=== PATIENT | female | born 1985 | race Caucasian/White ===

== ENCOUNTER 2020-04-22 11:39 | Outpatient (REF) | payer OTHER, SELFPAY | END 2020-04-22 11:40 | disposition home or self-care (01) | LOC: HO.LAB 11:39 | PROVIDERS: Visit Provider Internal Medicine | DX: Z20.828 Contact with and (suspected) exposure to other viral communicable diseases (principal) | CPT/HCPCS: U0003 ==

== ENCOUNTER 2020-06-30 12:53 | Outpatient (REF) | payer OTHER, SELFPAY | END 2020-06-30 12:54 | disposition home or self-care (01) | LOC: HO.LAB 12:53 | PROVIDERS: Visit Provider Internal Medicine | DX: Z20.828 Contact with and (suspected) exposure to other viral communicable diseases (principal) | CPT/HCPCS: 36415; C9803; U0003 ==

== ENCOUNTER 2020-08-10 17:23 | Emergency (ER) | payer OTHER, SELFPAY ==
[2020-08-10 22:31] VITALS: BP 140/71; PULSE 74; RESP 16; TEMP 36.8; O2SAT 98; BMI 25.7
== END 2020-08-11 00:19 | disposition left against medical advice (07) ==
PROVIDERS: Emergency Provider Emergency Medicine
DX: S01.332A Puncture wound without foreign body of left ear, initial encounter (principal); S01.331A Puncture wound without foreign body of right ear, initial encounter; X58.XXXA Exposure to other specified factors, initial encounter; H93.8X3 Other specified disorders of ear, bilateral; Y93.9 Activity, unspecified; Y92.9 Unspecified place or not applicable; Y99.9 Unspecified external cause status
CPT/HCPCS: 99281; 99282

== ENCOUNTER 2020-08-11 11:46 | Emergency (ER) | payer OTHER, SELFPAY ==
[2020-08-11 14:32] VITALS: BP 120/84; PULSE 82; RESP 16; TEMP 36.6; O2SAT 99; BMI 25.7
--- NOTE | 2020-08-11 14:50 | ED_ITS ---
HPI - Skin/Abscess/Foreign Bdy General Chief complaint: Skin/Abscess/Foreign Body Stated complaint: EAR PAIN Time Seen by Provider: 08/11/20 12:38 Source: patient Mode of arrival: ambulatory Limitations: no limitations History of Present Illness HPI narrative: 35-year-old female presenting to the ED with complaints of hearing stuck in bilateral yellow for the past 2 days. Denies any other symptoms complaints or concerns at this time. MD complaint: foreign body Onset (ago): day(s) (2 days ) Location: face (b/l ear lobes) Severity: moderate Quality: aching Pain Consistency: constant Relieving factors: none Exacerbating factors: none Context: none Associated symptoms: denies other symptoms Treatments prior to arrival: none Related Data Previous Rx's Medication Instructions Recorded acetaminophen-codeine 1 tab PO Q8H PRN #10 tab 08/11/20 amoxicillin-pot clavulanate 1 tab PO BID 10 Days #20 tab 08/11/20 [Augmentin] ibuprofen 800 mg PO Q8H PRN #14 tab 08/11/20 Allergies Allergy/AdvReac Type Severity Reaction Status Date / Time No Known Allergies Allergy Unknown UNKNOWN Unverified 03/10/20 16:40 Review of Systems Review of Systems: Constitutional : No Fever, No Chills , no body aches, no recent illness Head/Face: No facial swelling, No facial redness ENT/Mouth : + FB top b/l ear lobes, No oral/throat swelling, No Hoarseness, No Swallowing Difficulty Eyes: No Eye Pain, No Swelling, No Redness Cardiovascular : No Chest Pain, No SOB, No palpitations Respiratory : No Cough, No Sputum, No Wheezing, No Smoke Exposure, No Dyspnea Gastrointestinal : No Nausea, No Vomiting, No Diarrhea, No abdominal Pain Genitourinary : No Dysuria, No Urinary Frequency, No Hematuria Musculoskeletal : No joint pain, No Myalgias, No Joint Swelling Skin : No Skin Lesions, No rash Neuro : No Weakness, No Numbness, No Headache, No dizziness, No tingling Psych : No Anxiety/Panic, No Depression Heme/Lymph: No Bruising, No Lymphadenopathy Endocrine : No Polyuria, No Polydipsia Denies changes in lotions or detergents. Denies new medications or any changes in medications. Denies drainage from rash. Denies any recent sick contacts or recent travel. Yes all other systems are reviewed and are negative PMFSH Past Medical History Attestation statement: The following information was validated with the patient. Medical History No known health problems Social History Social History Smoked in Last 30 Days: No Use of substances other than those prescribed or required for medical reasons: No Advance Directives: No Advance Directives Information Provided: No Physical Exam Vital Signs: Vital Signs: Last Vital Signs Temp 97.9 F 08/11/20 14:32 Pulse 82 08/11/20 14:32 Resp 16 08/11/20 14:32 BP 120/84 08/11/20 14:32 Pulse Ox 99 08/11/20 14:32 Body Mass Index 25.7 vital signs have been reviewed as normal and appeared to be correct. Blood pressure normal. Heart rate normal. Respiration rate normal. Temperature normal. Oxygen saturation normal. Appearance: Alert. Oriented X3. No acute distress. Head: Normal external exam. Normocephalic. Atraumatic. Eyes: PERRLA. EOMI. Conjunctiva and sclera normal. Eyelids normal. ENT: Bilateral ear lobes with yellow-colored earrings in place although the back piece is imbedded into the ear with mild soft tissue swelling and purulent drainage coming out posterior ear lobe. Otherwise EAC normal. TM's Normal. Pharynx normal. Uvula midline. Moist mucous membranes. Neck: Normal inspection. Neck supple. FROM. No adenopathy. Thyroid Normal. No meningeal signs. CVS: Normal heart rate and rhythm. Heart sound normal. No murmurs noted. Pulses normal throughout. Respiratory: No respiratory distress. Painless inspiration. Back: No CVA tenderness. Full range of motion noted. Skin: Skin warm and dry. Normal skin color. Normal skin turgor. No rashes/lesions/lacerations noted. Extremities: Extremities exhibit normal range of motion. Extremities nontender. Neuro: Oriented X 3. No motor deficit. No sensory deficit. Reflexes normal. Course Course Course Narrative: Patient is now status post foreign body of the Gold colored back piece of the earrings removed. No complications. Patient tolerated procedure well. Due to purulent drainage will place on antibiotic and symptomatic treatment all instructions to return if any new or worsening symptoms to follow up with primary care provider. Patient understands agrees the plan. Procedures FB Removal Ear Location: ear canal (R) (Bilateral ear lobes) Foreign Body Suspected: other (Gold color metal) Foreign Body Removed: yes Foreign Body Removal Technique: forceps Patient Tolerated Procedure: well and no complications Complications: none Additional Comments: I did not have to go into the patient's internal ear canal. MDM - Skin/Abscess/Foreign Bdy Medical Records Attestation: I reviewed the patient's medical records. Discharge Plan Discharge Clinical Impression: Acute foreign body of right earlobe, Acute foreign body of left earlobe Patient Disposition: Home, Self-Care Instructions: Soft Tissue Foreign Body (ED), Ear Foreign Body (ED) Prescriptions: New amoxicillin-pot clavulanate [Augmentin] 875-125 mg tablet 1 tab PO BID 10 Days Qty: 20 RF: 0 acetaminophen-codeine 300-30 mg tablet 1 tab PO Q8H PRN (Reason: pain) Qty: 10 RF: 0 ibuprofen 800 mg tablet 800 mg PO Q8H PRN (Reason: pain) Qty: 14 RF: 0 Referrals: [facility] [Primary Care Provider] - 2 days Print Language: Togolese
== END 2020-08-11 15:06 | disposition home or self-care (01) ==
PROVIDERS: Emergency Provider Emergency Medicine
DX: S01.342A Puncture wound with foreign body of left ear, initial encounter (principal); S01.341A Puncture wound with foreign body of right ear, initial encounter; X58.XXXA Exposure to other specified factors, initial encounter; Y93.9 Activity, unspecified; Y92.9 Unspecified place or not applicable; Y99.9 Unspecified external cause status
CPT/HCPCS: 99283; 99284

== ENCOUNTER 2021-02-23 14:56 | Outpatient (REF) | payer OTHER, SELFPAY ==
--- NOTE | ~2021-02-23 | XR_ITS ---
EXAMINATION: XR CHEST CLINICAL INFORMATION: Preop. Rule out lesion. COMPARISON: Previous chest x-rays, most recent November 2019 TECHNIQUE: 2 views of the chest were obtained. FINDINGS: No significant abnormality is noted involving the heart, lungs, mediastinum, bony thorax or soft tissues. XR/XR chest 2V IMPRESSION: Unremarkable examination.
[2021-02-23 15:50] LABS: Influenza A PCR NEGATIVE (Negative); Influenza B PCR NEGATIVE (Negative); Resp Syncy Virus RNA Qual PCR NEGATIVE (Negative); SARS COV2 PCR INHOUSE NEGATIVE (Negative)
== END 2021-02-23 14:57 | disposition home or self-care (01) ==
LOC: HO.XRAY 14:56
PROVIDERS: PCP Internal Medicine; Visit Provider Internal Medicine
DX: Z01.818 Encounter for other preprocedural examination (principal)
CPT/HCPCS: 0241U; 36415; 71046

== ENCOUNTER 2021-03-08 09:56 | Emergency (ER) | payer OTHER, SELFPAY ==
--- NOTE | ~2021-03-08 | CT_ITS ---
EXAMINATION: CT ABDOMEN AND PELVIS WITHOUT CONTRAST CLINICAL INFORMATION: Flank pain. COMPARISON: CT abdomen pelvis 01/06/2018 TECHNIQUE: Multidetector volumetric imaging was performed from the superior aspect of the liver through the pubic symphysis. Sagittal and coronal reformatted images were obtained on the technologist's workstation. This CT examination was performed using dose optimization techniques as appropriate, variously including the following: *Automated exposure control *Adjustment of mA and/or kV according to patient size (this includes techniques or standardized protocols for targeted exams where dose is matched to indication/reason for exam; i.e. extremities or head) *Use of iterative reconstruction technique DLP: 370 mGy-cm FINDINGS: LUNG BASES: The visualized lung bases are unremarkable. LIVER, GALLBLADDER, AND BILIARY TREE: The liver is normal in size, shape, and attenuation. No focal hepatic lesion or biliary ductal dilatation is present. The gallbladder is unremarkable with no evidence of radiopaque gallstones, gallbladder wall thickening, or obvious pericholecystic inflammatory changes. PANCREAS: Unremarkable. SPLEEN: Unremarkable. ADRENAL GLANDS: Unremarkable. KIDNEYS AND URETERS: The kidneys are normal in size, shape, and attenuation. No hydronephrosis, hydroureter, or calculi seen. No perinephric stranding. There is a punctate 4 mm hypodensity upper/midpole right kidney cortex likely small cyst. BLADDER: Unremarkable. GASTROINTESTINAL TRACT: There is scattered stool, diverticuli and gas throughout the colon without distention or mural thickening. No pericolic fat stranding seen. ABDOMINAL WALL: A small lumbar canal hernia containing fat is noted. LYMPH NODES: Normal. VASCULAR: Unremarkable. PELVIC VISCERA: The uterus is anteverted and appears unremarkable. There is no adnexal mass or free fluid. No evidence of hernia. OSSEOUS STRUCTURES: Unremarkable. CT/CT abdomen pelvis wo con IMPRESSION: Sigmoid diverticulosis without evidence of diverticulitis. Mild constipation. No radiopaque urolith or hydroureteronephrosis.
[2021-03-08 10:16] VITALS: BP 124/77; PULSE 56; RESP 16; TEMP 36.2; O2SAT 98; BMI 24.7
[2021-03-08 10:40] LABS: Appearance Urine HAZY; Color Urine YELLOW; Glucose Urine UA NEG (NEG); Leukocyte Esterase Urine 1+ (NEG); Nitrite Urine NEG (NEG); Specific Gravity - Urine >= 1.030 (1.005-1.025); UACC Culture Trigger YES; Urine Blood NEG (NEG); Urine Ketones NEG (NEG); Urine Protein NEG (NEG-TRACE)
[2021-03-08 10:44] LABS: UPreg QC Valid YES; Urine Pregnancy NEGATIVE (NEGATIVE)
[2021-03-08 10:52] LABS: COVID-19 Test Negative (Negative)
[2021-03-08 10:54] LABS: Bacteria Urine TRACE /LPF; RBC Urine 0 /HPF (0); Squamous Epithelial Cell Urine TRACE /LPF
--- NOTE | 2021-03-08 11:07 | ED_ITS ---
HPI - Nausea/Vomiting/Diarrhea General Chief complaint: Nausea/Vomiting/Diarrhea Stated complaint: back & abd pain Time Seen by Provider: 03/08/21 11:01 History of Present Illness HPI Narrative: Patient is a 35-year-old female presented with having 3 day history of nausea, flank pain. Patient feels very tired. Feels very weak. Worry she has COVID. Patient denies any diaphoresis no coughing or congestion or upper respiratory symptoms. Positive diarrhea that is brown in color. Pat ient did not miss her menstruation. Timing leavitt his been normal. Patient denies any vaginal discharge. Denies any chest pain shortness of breath coughing congestion upper respiratory symptoms. Denies any change in smell. She is not immunized Related Data Previous Rx's Medication Instructions Recorded acetaminophen 300 mg-codeine 30 mg 1 tab PO Q8H PRN #10 tab 08/11/20 tablet amoxicillin 875 mg-potassium 1 tab PO BID 10 Days #20 tab 08/11/20 clavulanate 125 mg tablet (Augmentin) ibuprofen 800 mg tablet 800 mg PO Q8H PRN #14 tab 08/11/20 Allergies Allergy/AdvReac Type Severity Reaction Status Date / Time No Known Allergies Allergy Unknown UNKNOWN Unverified 03/10/20 16:40 Review of Systems Review of Systems: Positive generalized malaise Positive nausea vomiting positive diarrhea All systems reviewed otherwise negative Yes all other systems are reviewed and are negative [facility] Past Medical History Attestation statement: The following information was validated with the patient. Medical History No known health problems Social History Social History Advance Directives: No Advance Directives Information Provided: No Physical Exam Vital Signs: Vital Signs: Last Vital Signs Temp 98.6 F 03/08/21 11:19 Pulse 59 03/08/21 11:19 Resp 15 03/08/21 11:19 BP 123/84 03/08/21 11:19 Pulse Ox 98 03/08/21 11:19 Body Mass Index 24.7 Appearance: Alert. Oriented X3. No acute distress. Eyes: Pupils equal, round and reactive to light. ENT: Pharynx normal. Neck: Normal inspection. Neck supple. No lymph nodes noted. No crepitus CVS: Normal heart rate and rhythm. Pulses normal. Normal S1 and S2 Respiratory: No respiratory distress. Breath sounds normal. No Wheezing. No rales Abdomen: Soft and nontender. No rigidity. No distention. good BS x4 Skin: Skin warm and dry. Normal skin color. Normal skin turgor. Extremities: No lower extremity edema. Neurovascular intact to all extremities. No Lacerations. No Rash Neuro: Oriented X 3. No motor deficit. No sensory deficit. Moving all extermities. No slurred speech MDM - Nausea/Vomiting/Diarrhea MDM Narrative Medical decision making narrative: Patient's electrolytes are unremarkable white count is normal. test is negative COVID test is negative CT scan of the abdomen negative for abscess perforation kidney stones obstruction. Will have patient follow-up on an outpatient basis. Patient left prior to discharge. In stable condition. Lab Data Result diagrams: 03/08/21 11:16 03/08/21 11:16 Labs: Lab Results 03/08/21 03/08/21 03/08/21 Range/Units 10:29 10:29 10:29 WBC (4.8-10.8) X10*3/uL RBC (4.20-5.50) X10*6/uL Hgb (12.0-16.0) g/dl Hct (37-47) % MCV (80-98) fL MCH (27.0-33.0) pg MCHC (31.0-35.0) g/dl RDW (11.0-16.0) % Plt Count (160-400) X10*3/uL MPV (9.4-12.3) fL Immature Gran % (Auto) (0.0-0.4) % Neut % (Auto) (45-73) % Lymph % (Auto) (20-40) % [place] % (Auto) (2-11) % Eos % (Auto) (0-4) % Baso % (Auto) (0-2) % Lymph # (Auto) (1.2-4.9) X10*3/uL [place] # (Auto) (0.1-1.2) X10*3/uL Eos # (Auto) (0.0-0.4) X10*3/uL Baso # (Auto) (0.0-0.2) X10*3/uL Abs Immat Gran (auto) (0.00-0.03) X10*3/uL Absolute Neuts (auto) (2.0-8.3) X10*3/uL Absolute Nucleated RBC (0.0-0.012) X10*3/uL Nucleated RBC % (auto) (0.0-0.2) /100WBC Sodium (135-145) mmol/L Potassium (3.3-5.1) mmol/L Chloride (96-108) mmol/L Carbon Dioxide (22-29) mmol/L Anion Gap (12-20) BUN (9-16) mg/dL Creatinine (0.5-1.4) mg/dL Estim Creat Clear Calc Estimated GFR Random Glucose (60-115) mg/dL Calcium (8.4-10.2) mg/dL Total Bilirubin (0.0-1.0) mg/dL AST (5-31) U/L ALT (0-31) U/L Alkaline Phosphatase (39-117) U/L Total Protein (6.5-8.0) g/dL Albumin (3.5-5.0) g/dL Lipase (8-78) U/L Urine Color YELLOW Urine Appearance HAZY Urine pH 6.0 (5.0-8.0) Ur Specific [place] >= 1.030 H (1.005-1.025) Urine Protein NEG (NEG-TRACE) MG/DL Urine Glucose (UA) NEG (NEG) MG/DL Urine Ketones NEG (NEG) MG/DL Urine Blood NEG (NEG) Urine Nitrite NEG (NEG) Ur Leukocyte Esterase 1+ H (NEG) Urine RBC 0 (0) /HPF Urine WBC 1-4 (0-4) /HPF Ur Squamous Epith Cells TRACE /LPF Urine Bacteria TRACE /LPF Urine Test NEGATIVE (NEGATIVE) COVID-19 ([facility]) Negative (Negative) COVID-19 Clin Com See Note 03/08/21 03/08/21 Range/Units 11:16 11:16 WBC 9.3 (4.8-10.8) X10*3/uL RBC 4.50 (4.20-5.50) X10*6/uL Hgb 12.7 (12.0-16.0) g/dl Hct 40.0 (37-47) % MCV 88.9 (80-98) fL MCH 28.2 (27.0-33.0) pg MCHC 31.8 (31.0-35.0) g/dl RDW 13.5 (11.0-16.0) % Plt Count 261 (160-400) X10*3/uL MPV 10.7 (9.4-12.3) fL Immature Gran % (Auto) 0.3 (0.0-0.4) % Neut % (Auto) 64.9 (45-73) % Lymph % (Auto) 29.2 (20-40) % Brewster % (Auto) 4.1 (2-11) % Eos % (Auto) 1.3 (0-4) % Baso % (Auto) 0.2 (0-2) % Lymph # (Auto) 2.7 (1.2-4.9) X10*3/uL Brewster # (Auto) 0.4 (0.1-1.2) X10*3/uL Eos # (Auto) 0.1 (0.0-0.4) X10*3/uL Baso # (Auto) 0.0 (0.0-0.2) X10*3/uL Abs Immat Gran (auto) 0.03 (0.00-0.03) X10*3/uL Absolute Neuts (auto) 6.0 (2.0-8.3) X10*3/uL Absolute Nucleated RBC 0.000 (0.0-0.012) X10*3/uL Nucleated RBC % (auto) 0.0 (0.0-0.2) /100WBC Sodium 139 (135-145) mmol/L Potassium 4.2 (3.3-5.1) mmol/L Chloride 108 (96-108) mmol/L Carbon Dioxide 25 (22-29) mmol/L Anion Gap 10 L (12-20) BUN 8 L (9-16) mg/dL Creatinine 0.72 (0.5-1.4) mg/dL Estim Creat Clear Calc 97.8 Estimated GFR > 60 Random Glucose 88 (60-115) mg/dL Calcium 9.4 (8.4-10.2) mg/dL Total Bilirubin 0.4 (0.0-1.0) mg/dL AST 13 (5-31) U/L ALT 15 (0-31) U/L Alkaline Phosphatase 70 (39-117) U/L Total Protein 6.6 (6.5-8.0) g/dL Albumin 4.1 (3.5-5.0) g/dL Lipase 24 (8-78) U/L Urine Color Urine Appearance Urine pH (5.0-8.0) Ur Specific [place] (1.005-1.025) Urine Protein (NEG-TRACE) MG/DL Urine Glucose (UA) (NEG) MG/DL Urine Ketones (NEG) MG/DL Urine Blood (NEG) Urine Nitrite (NEG) Ur Leukocyte Esterase (NEG) Urine RBC (0) /HPF Urine WBC (0-4) /HPF Ur Squamous Epith Cells /LPF Urine Bacteria /LPF Urine Test (NEGATIVE) COVID-19 ([facility]) (Negative) COVID-19 Clin Com Discharge Plan Discharge Clinical Impression: Left against medical advice Patient Disposition: Left Against Medical Advice Prescriptions: No Action amoxicillin-pot clavulanate [Augmentin] 875-125 mg tablet 1 tab PO BID 10 Days Qty: 20 RF: 0 acetaminophen-codeine 300-30 mg tablet 1 tab PO Q8H PRN (Reason: pain) Qty: 10 RF: 0 ibuprofen 800 mg tablet 800 mg PO Q8H PRN (Reason: pain) Qty: 14 RF: 0 Interventions: ED Discharge Assessment Last Done: 03/08/21 12:19 Discharge Date/Time: 03/08/21 12:21
[2021-03-08 11:19] VITALS: BP 123/84; PULSE 59; RESP 15; TEMP 37; O2SAT 98
[2021-03-08 11:24] LABS: MANUAL DIFF FLAG NO
[2021-03-08 11:27] LABS: Basophils Percent Auto 0.2 % (0-2); Eosinophils Absolute Auto 0.1 X10*3/uL (0.0-0.4); Eosinophils Percent Auto 1.3 % (0-4); Hemoglobin 12.7 g/dl (12.0-16.0); Imm Gran Abs Auto 0.03 X10*3/uL (0.00-0.03); Imm Gran Pct Auto 0.3 % (0.0-0.4); Lymphocytes Absolute Auto 2.7 X10*3/uL (1.2-4.9); Lymphocytes Percent Auto 29.2 % (20-40); Mean Corpuscular HGB Conc 31.8 g/dl (31.0-35.0); Mean Corpuscular Hemoglobin 28.2 pg (27.0-33.0); Mean Corpuscular Volume 88.9 fL (80-98); Mean Platelet Volume 10.7 fL (9.4-12.3); Monocytes Absolute Auto 0.4 X10*3/uL (0.1-1.2); Monocytes Percent Auto 4.1 % (2-11); Neutrophils Percent Auto 64.9 % (45-73); Platelet Count 261 X10*3/uL (160-400); Red Cell Distribution Width 13.5 % (11.0-16.0); White Blood Count 9.3 X10*3/uL (4.8-10.8)
[2021-03-08] MEDS: 0.9 % Sodium Chloride 1,000 ML 999 ML IV (11:32)
[2021-03-08 11:50] LABS: Alanine Aminotransferase 15 U/L (0-31); Albumin Level 4.1 g/dL (3.5-5.0); Alkaline Phosphatase 70 U/L (39-117); Anion Gap 10 (12-20); Aspartate Amino Transferase 13 U/L (5-31); Bilirubin Total 0.4 mg/dL (0.0-1.0); Blood Urea Nitrogen 8 mg/dL (9-16); Calcium 9.4 mg/dL (8.4-10.2); Carbon Dioxide 25 mmol/L (22-29); Chloride 108 mmol/L (96-108); Creatinine Clr Calc Pharmacy 97.8; Estimated Glomerular Filt Rate > 60; Glucose Random 88 mg/dL (60-115); Lipase 24 U/L (8-78); Potassium 4.2 mmol/L (3.3-5.1); Sodium 139 mmol/L (135-145); Total Protein 6.6 g/dL (6.5-8.0)
--- NOTE | 2021-03-08 12:17 | PC.NURSE ---
Pt stating that she had to leave emergently due to a situation with her daughter. Provider alerted and IV removed before pt departed. Risks of leaving explained to pt who verbally understood.
[2021-03-08 13:18] LABS: TSH reflex Free T4 0.57 uIU/mL (0.32-4.0)
== END 2021-03-08 12:21 | disposition left against medical advice (07) ==
PROVIDERS: Emergency Provider Emergency Medicine Emergency Medical Services; PCP Internal Medicine
DX: R11.2 Nausea with vomiting, unspecified (principal); R10.9 Unspecified abdominal pain; Z79.899 Other long term (current) drug therapy; Z20.822 Contact with and (suspected) exposure to COVID-19
CPT/HCPCS: 36415; 74176; 80053; 81001; 81025; 83690; 84443; 85025; 87086; 87635; 96360; 99284

== ENCOUNTER 2021-04-16 10:14 | Emergency (ER) | payer OTHER, SELFPAY ==
--- NOTE | ~2021-04-16 | XR_ITS ---
EXAMINATION: XR CHEST CLINICAL INFORMATION: Productive cough COMPARISON: None TECHNIQUE: Frontal view of the chest was obtained. FINDINGS: No significant abnormality is noted involving the heart, lungs, mediastinum, bony thorax or soft tissues. XR/XR chest 1V IMPRESSION: Unremarkable chest exam.
[2021-04-16 10:25] VITALS: BP 122/75; PULSE 66; RESP 16; TEMP 36.7; O2SAT 100; BMI 25.7
--- NOTE | 2021-04-16 10:36 | ED.GENADULT ---
HPI - General Adult General Chief complaint: General Medical Stated complaint: congestion, abd pain Time Seen by Provider: 04/16/21 10:23 Source: patient Mode of arrival: ambulatory History of Present Illness HPI narrative: 35-year-old female presenting to the ED complaining of productive cough, rhinorrhea, myalgias x4 days, also reports lower abdominal/suprapubic pain and white vaginal discharge. Is sexually active with 1 male partner, denies history of STIs. Denies fever, chills, ear pain, sore throat, CP/SOB. Denies dysuria/hematuria, vaginal bleeding, flank pain, vaginal lesions Onset (ago): day(s) Related Data Previous Rx's Medication Instructions Recorded acetaminophen 300 mg-codeine 30 mg 1 tab PO Q8H PRN #10 tab 08/11/20 tablet amoxicillin 875 mg-potassium 1 tab PO BID 10 Days #20 tab 08/11/20 clavulanate 125 mg tablet (Augmentin) ibuprofen 800 mg tablet 800 mg PO Q8H PRN #14 tab 08/11/20 Allergies Allergy/AdvReac Type Severity Reaction Status Date / Time No Known Allergies Allergy Unknown UNKNOWN Unverified 03/10/20 16:40 Review of Systems Review of Systems: Constitutional: No Fever, No Chills, No Fatigue, No Malaise ENT/Mouth: No Ear Pain,+Nasal Congestion, No sore throat, + Rhinorrhea Eyes: No Eye Pain, No Swelling, No Redness, No Foreign Body, No Discharge, No Vision Changes Cardiovascular: No Chest Pain, No SOB, No Dyspnea on Exertion, No Palpitations Respiratory: + Cough, No Dyspnea Gastrointestinal: No Nausea, No Vomiting, No Diarrhea, No Constipation, No Abdominal pain Genitourinary: No irregular bleeding, No Dysuria, No Urinary Frequency, No Hematuria, +vaginal discharge, No Flank Pain Musculoskeletal: No joint pain, + Myalgias, No Joint Swelling Skin: No Skin Lesions, No rash Neuro: No Weakness, No Numbness Yes all other systems are reviewed and are negative [facility] Past Medical History Attestation statement: The following information was validated with the patient. Medical History No known health problems Social History Social History Advance Directives: No Advance Directives Information Provided: No Patient : No Physical Exam Vital Signs: Vital Signs: Last Vital Signs Temp 98.1 F 04/16/21 10:25 Pulse 66 04/16/21 10:25 Resp 16 04/16/21 10:25 BP 122/75 04/16/21 10:25 Pulse Ox 100 04/16/21 10:25 Body Mass Index 25.7 Const: General: cooperative and healthy appearing Orientation/consciousness: patient oriented x3 Limitations: no limitations HENMT: Head: Yes normal to inspection Ears: hearing grossly normal bilaterally General nose exam: Normal external nose present Face and sinus: Yes normal facial exam Eyes: General: appearance normal, both eyes and all related structures EOM: EOMs intact bilaterally Neck: Neck: Yes normal visual inspection and Yes no meningeal signs Resp: Effort & Inspection: normal respiratory effort Auscultation: clear to auscultation bilaterally, no rales, no rhonchi and no wheezes Cardio: Rate: regular rate Heart sounds: S1 normal heart sound present and S2 normal heart sound present GI: Inspection: Yes normal to inspection Palpation (GI): Soft to palpation, Tenderness to palpation present (GI) (Suprapubic tenderness), no guarding and not rigid : Other: Clear/ortega vaginal discharge noted on exam. Cervical cysts noted, cervix is friable. No CMT, no adnexal tenderness. No vaginal lesions or bleeding General: Yes no CVA tenderness Back/Spine/Pelvis: Back: no CVA tenderness Skin: Rashes: no rashes Wounds: no wounds Neuro: General: patient oriented x3 and no meningeal signs Extrem: General: Yes normal to inspection Course Course Course Narrative: -COVID-19 negative, UA unremarkable, urine negative. XR chest 1V IMPRESSION: Unremarkable chest exam. ? Medical Decision Making [facility] Narrative Medical decision making narrative: 35-year-old female presenting to the ED complaining of productive cough, rhinorrhea, myalgias x4 days, also reports lower abdominal/suprapubic pain and white vaginal discharge. On exam vital signs stable, NAD, abdomen soft with suprapubic tenderness to palpation, no rebound or guarding. No CVAT. On pelvic clear/ortega vaginal discharge noted, no CMT or adnexal tenderness. Lungs CTA. Concern for viral syndrome/COVID-19. Lower concern for pneumonia. Rule out . Concern for STI vs UTI. Exam not consistent with PID. Discussed with patient empiric treatment for STIs however patient would not like treatment at this time and would like to wait until cultures result. Plan: Labs, UA, urine , COVID-19 testing, CXR Lab Data Labs: Lab Results 04/16/21 04/16/21 04/16/21 Range/Units 11:23 11:23 11:24 Urine Color YELLOW Urine Appearance CLOUDY Urine pH 6.0 (5.0-8.0) Ur Specific [place] >= 1.030 H (1.005-1.025) Urine Protein TRACE (NEG-TRACE) MG/DL Urine Glucose (UA) NEG (NEG) MG/DL Urine Ketones NEG (NEG) MG/DL Urine Blood NEG (NEG) Urine Nitrite NEG (NEG) Ur Leukocyte Esterase 1+ H (NEG) Urine RBC 1-4 (0) /HPF Urine WBC 1-4 (0-4) /HPF Ur Squamous Epith Cells 3+ /LPF Urine Bacteria 1+ /LPF Urine Test NEGATIVE (NEGATIVE) COVID-19 ([facility]) Negative (Negative) COVID-19 Clin Com See Note Discharge Plan Discharge Clinical Impression: Acute viral syndrome, Vaginal discharge Patient Disposition: Home, Self-Care Instructions: Viral Syndrome (ED), Vaginal Discharge (ED) Additional Instructions: You tested negative for COVID-19. You were tested for STIs in the ED, the culture should be back in 48 hours, we will contact you for positive results only. Please refrain from any sexual contact until you know the results of her cultures. If her symptoms persist or worsen, you develop abdominal pain, nausea/vomiting, worsening symptoms please return to the ED Please follow-up with your doctor Rest, stay hydrated Prescriptions: No Action amoxicillin-pot clavulanate [Augmentin] 875-125 mg tablet 1 tab PO BID 10 Days Qty: 20 RF: 0 acetaminophen-codeine 300-30 mg tablet 1 tab PO Q8H PRN (Reason: pain) Qty: 10 RF: 0 ibuprofen 800 mg tablet 800 mg PO Q8H PRN (Reason: pain) Qty: 14 RF: 0 Referrals: Zen Corona MD [Primary Care Provider] - 2 days Interventions: ED Discharge Assessment Last Done: 04/16/21 13:01
[2021-04-16 11:32] LABS: Appearance Urine CLOUDY; Color Urine YELLOW; Glucose Urine UA NEG (NEG); Leukocyte Esterase Urine 1+ (NEG); Nitrite Urine NEG (NEG); Specific Gravity - Urine >= 1.030 (1.005-1.025); UACC Culture Trigger YES; Urine Blood NEG (NEG); Urine Ketones NEG (NEG); Urine Protein TRACE MG/DL (NEG-TRACE)
[2021-04-16 11:33] LABS: UPreg QC Valid YES; Urine Pregnancy NEGATIVE (NEGATIVE)
[2021-04-16 11:46] LABS: Bacteria Urine 1+ /LPF; Squamous Epithelial Cell Urine 3+ /LPF
[2021-04-16 11:53] LABS: COVID-19 Test Negative (Negative); IDNOW Serial# 9DD0AD1C
--- NOTE | 2021-04-16 12:01 | PC.NURSE ---
in bed, nad, skin wpd, informed of test results
[2021-04-17 01:55] LABS: CT PCR NOT DETECTED (Not Detect.); NG PCR NOT DETECTED (Not Detect.)
[2021-04-17 08:38] LABS: BV Int Neg Control Negative (Negative); BV Int Pos Control Positive (Positive)
== END 2021-04-16 13:01 | disposition home or self-care (01) ==
PROVIDERS: Physician Assistant; Emergency Provider Emergency Medicine; PCP Internal Medicine
DX: B34.9 Viral infection, unspecified (principal); N89.8 Other specified noninflammatory disorders of vagina; Z20.822 Contact with and (suspected) exposure to COVID-19; Z79.899 Other long term (current) drug therapy; Z20.2 Contact with and (suspected) exposure to infections with a predominantly sexual mode of transmission
CPT/HCPCS: 36415; 71045; 81001; 81025; 87086; 87480; 87491; 87510; 87591; 87635; 87660; 99283

== ENCOUNTER 2021-06-28 11:42 | Outpatient (REF) | payer OTHER, SELFPAY ==
[2021-06-28 14:01] LABS: Binax Now Covid-19 Ag Negative (Negative)
[2021-06-28 14:02] LABS: Binax Internal Control QC Valid
== END 2021-06-28 11:43 | disposition home or self-care (01) ==
LOC: HO.LAB 11:42
PROVIDERS: Visit Provider Internal Medicine
DX: Z20.822 Contact with and (suspected) exposure to COVID-19 (principal)
CPT/HCPCS: 36415; C9803

== ENCOUNTER 2021-08-06 17:14 | Emergency (ER) | payer OTHER, SELFPAY ==
[2021-08-06 17:22] VITALS: BP 118/88; PULSE 69; RESP 18; TEMP 36.6; O2SAT 100; BMI 24.0
[2021-08-06 17:43] LABS: MANUAL DIFF FLAG NO
[2021-08-06 17:49] LABS: Basophils Percent Auto 0.3 % (0-2); Eosinophils Absolute Auto 0.1 X10*3/uL (0.0-0.4); Eosinophils Percent Auto 0.9 % (0-4); Hematocrit 40.2 % (37.0-47.0); Imm Gran Abs Auto 0.02 X10*3/uL (0.00-0.03); Imm Gran Pct Auto 0.2 % (0.0-0.4); Lymphocytes Absolute Auto 2.8 X10*3/uL (1.2-4.9); Lymphocytes Percent Auto 28.8 % (20-40); Mean Corpuscular HGB Conc 32.3 g/dl (31.0-35.0); Mean Corpuscular Hemoglobin 28.4 pg (27.0-33.0); Mean Platelet Volume 10.9 fL (9.4-12.3); Monocytes Absolute Auto 0.4 X10*3/uL (0.1-1.2); Monocytes Percent Auto 4.4 % (2-11); Neutrophils Absolute Auto 6.3 x10*3/uL (2.0-8.3); Neutrophils Percent Auto 65.4 % (45-73); Platelet Count 261 X10*3/uL (160-400); Red Blood Count 4.57 X10*6/uL (4.20-5.50); White Blood Count 9.7 X10*3/uL (4.8-10.8)
[2021-08-06 17:56] LABS: UPreg QC Valid YES; Urine Pregnancy NEGATIVE (NEGATIVE)
[2021-08-06 17:58] LABS: Appearance Urine HAZY; Color Urine YELLOW; Glucose Urine UA NEG (NEG); Leukocyte Esterase Urine 1+ (NEG); Nitrite Urine NEG (NEG); Specific Gravity - Urine >= 1.030 (1.005-1.025); UACC Culture Trigger YES; Urine Blood NEG (NEG); Urine Ketones NEG (NEG); Urine Protein TRACE MG/DL (NEG-TRACE)
[2021-08-06 18:16] LABS: RBC Urine 0-2 /HPF (0); WBC Urine 0-2 /HPF (0-4)
[2021-08-06 18:17] LABS: Squamous Epithelial Cell Urine 2+ /LPF
[2021-08-06 18:19] LABS: Bacteria Urine 2+ /LPF; Mucus Urine TRACE /LPF
[2021-08-06 18:20] LABS: Alanine Aminotransferase 13 U/L (0-31); Albumin Level 4.5 g/dL (3.5-5.0); Alkaline Phosphatase 66 U/L (39-117); Anion Gap 11 (12-20); Aspartate Amino Transferase 16 U/L (5-31); Bilirubin Direct 0.3 mg/dL (0.0-0.5); Bilirubin Total 0.7 mg/dL (0.0-1.0); Blood Urea Nitrogen 10 mg/dL (9-16); Calcium 9.4 mg/dL (8.4-10.2); Carbon Dioxide 27 mmol/L (22-29); Chloride 106 mmol/L (96-108); Creatinine Clr Calc Pharmacy 80.4; Estimated Glomerular Filt Rate > 60; Glucose Random 73 mg/dL (60-115); Lipase 27 U/L (8-78); Potassium 4.2 mmol/L (3.3-5.1); Sodium 140 mmol/L (135-145); Total Protein 7.3 g/dL (6.5-8.0)
== END 2021-08-06 20:33 | disposition left against medical advice (07) ==
LOC: HO.ED 20:25
PROVIDERS: Emergency Provider Emergency Medicine; PCP Internal Medicine
DX: R10.9 Unspecified abdominal pain (principal); R11.0 Nausea; Z79.899 Other long term (current) drug therapy
CPT/HCPCS: 36415; 80048; 80076; 81001; 81025; 83690; 85025; 87086; 99283

== ENCOUNTER 2021-08-30 11:38 | Outpatient (REF) | payer OTHER, SELFPAY ==
[2021-08-30 13:49] LABS: MANUAL DIFF FLAG NO
[2021-08-30 13:58] LABS: Basophils Percent Auto 0.2 % (0-2); Eosinophils Absolute Auto 0.1 X10*3/uL (0.0-0.4); Eosinophils Percent Auto 0.6 % (0-4); Hematocrit 40.7 % (37.0-47.0); Hemoglobin 12.9 g/dl (12.0-16.0); Imm Gran Abs Auto 0.02 X10*3/uL (0.00-0.03); Imm Gran Pct Auto 0.2 % (0.0-0.4); Lymphocytes Absolute Auto 2.3 X10*3/uL (1.2-4.9); Lymphocytes Percent Auto 28.3 % (20-40); Mean Corpuscular HGB Conc 31.7 g/dl (31.0-35.0); Mean Corpuscular Hemoglobin 27.7 pg (27.0-33.0); Mean Corpuscular Volume 87.5 fL (80.0-98.0); Monocytes Absolute Auto 0.4 X10*3/uL (0.1-1.2); Monocytes Percent Auto 4.4 % (2-11); Neutrophils Absolute Auto 5.4 x10*3/uL (2.0-8.3); Neutrophils Percent Auto 66.3 % (45-73); Platelet Count 286 X10*3/uL (160-400); Red Blood Count 4.65 X10*6/uL (4.20-5.50); Red Cell Distribution Width 13.2 % (11.0-16.0); White Blood Count 8.1 X10*3/uL (4.8-10.8)
[2021-08-30 14:19] LABS: Anion Gap 10 (12-20); Blood Urea Nitrogen 12 mg/dL (9-16); C Reactive Protein 0.06 mg/dL (< or = 0.50); Carbon Dioxide 27 mmol/L (22-29); Chloride 108 mmol/L (96-108); Estimated Glomerular Filt Rate > 60; Glucose Random 78 mg/dL (60-115); Potassium 4.4 mmol/L (3.3-5.1); Sodium 141 mmol/L (135-145)
[2021-08-30 14:33] LABS: Free T4 (Free Thyroxine) 1.05 ng/dL (0.71-1.85); Thyroid Stimulating Hormone 0.79 uIU/mL (0.32-4.0); Vitamin D 25-OH Total 14.6 ng/mL (>30)
[2021-08-30 15:33] LABS: Vitamin B12 502 pg/mL (200-900)
== END 2021-08-30 11:39 | disposition home or self-care (01) ==
LOC: HO.10HDL 11:38
PROVIDERS: Visit Provider Internal Medicine
DX: R53.83 Other fatigue (principal); K57.90 Diverticulosis of intestine, part unspecified, without perforation or abscess without bleeding
CPT/HCPCS: 36415; 80048; 82306; 82607; 84439; 84443; 85025; 86140

== ENCOUNTER 2021-11-07 07:11 | Day surgery (SDC) | payer OTHER, SELFPAY ==
--- NOTE | 2021-11-06 09:09 | P.CONAN_ITS ---
Documented by User: Torrie Sanchez NP 11/06/21 09:11 HPI - Anesthesia Eval Consult details Narrative: 36yo F for Colonoscopy [facility] Past Medical History Medical History History of depression History of diverticulitis History of renal stone Vitamin D deficiency Surgical History Surgical History History of cystoscopy History of cystoscopy Hx of section Social History Social History Patient Tobacco Use Status: Former Tobacco user Quit Date: 2 months ago Use of substances other than those prescribed or required for medical reasons: No Are you DNR?: No Advance Directives: No Advance Directives Information Provided: Yes Meds Allergies Allergy/AdvReac Type Severity Reaction Status Date / Time No Known Allergies Allergy Unknown UNKNOWN Unverified 11/01/21 13:20 Home Medications Medication Instructions Recorded Confirmed Last Taken Type cholecalciferol (vitamin D3) 50 50 mcg PO DAILY 11/01/21 11/01/21 Unknown History mcg (2,000 unit) capsule (Vitamin D3) fluticasone propionate 50 1 spray INTRANASAL BID 11/01/21 11/01/21 Unknown History mcg/actuation nasal spray,suspension Exam Exam Date and Time: November 06, [id number] Pertinent Lab Results Pertinent Lab Results: Laboratory Tests 08/30/21 08/30/21 11:42 11:42 WBC 8.1 Hgb 12.9 Hct 40.7 Plt Count 286 Sodium 141 Potassium 4.4 Chloride 108 Carbon Dioxide 27 BUN 12 Creatinine 0.78 Assessment and Plan Assessment Anesthesia Assessment: Chart Reviewed Documented by User: Zoraida Diaz MD 11/07/21 08:17 [facility] Past Medical History Medical History History of depression History of diverticulitis History of renal stone Vitamin D deficiency Family History Family history of problems with anesthesia: No Surgical History Surgical History History of cystoscopy History of cystoscopy Hx of section History of Problems with Anesthesia: No Social History Social History Patient Tobacco Use Status: Former Tobacco user Quit Date: 2 months ago Use of substances other than those prescribed or required for medical reasons: No Are you DNR?: No Advance Directives: No Advance Directives Information Provided: Yes Meds Allergies Allergy/AdvReac Type Severity Reaction Status Date / Time No Known Allergies Allergy Unknown UNKNOWN Unverified 11/01/21 13:20 Home Medications Medication Instructions Recorded Confirmed Last Taken Type cholecalciferol (vitamin D3) 50 50 mcg PO DAILY 11/01/21 11/01/21 Unknown History mcg (2,000 unit) capsule (Vitamin D3) fluticasone propionate 50 1 spray INTRANASAL BID 11/01/21 11/01/21 Unknown History mcg/actuation nasal spray,suspension Exam Height,Weight and Vital Signs: Height 5 ft 3 in Weight 63.503 kg Vital Signs Temp Pulse Resp BP Pulse Ox 11/07/21 07:37 97.0 F 71 18 126/80 99 Pertinent Lab Results Pertinent Lab Results: Laboratory Tests 08/30/21 08/30/21 11:42 11:42 WBC 8.1 Hgb 12.9 Hct 40.7 Plt Count 286 Sodium 141 Potassium 4.4 Chloride 108 Carbon Dioxide 27 BUN 12 Creatinine 0.78 Lab Results 11/07/21 Range/Units 07:15 Urine Test NEGATIVE (NEGATIVE) Airway Mallampati Class: II TM Dist: >3cm Neck ROM: Full Heart: RRR Lungs: CTAB Assessment and Plan Assessment Anesthesia Assessment: Anesthesia Plan Discussed Final Anesthetic Review Family History of Problems with Anesthesia: No History of Problems with Anesthesia: No NPO: Yes ASA Class: II Final Preanesthetic Review: No Changes in Pt Med Stat, Meds/Allgs Chart Reviewed, Consent Obtained/Reviewed and Anes Risks/Benef Reviewed Patient Risk: Low Procedure Risk: Low Assessment/Block/Sedation in SS: Assess/Block/Sedation-SS Anesthetic Plan Anesthetic Plan: MAC: Disposition: Standard PACU
[2021-11-07 07:22] VITALS: BMI 24.7
[2021-11-07 07:31] LABS: UPreg QC Valid YES; Urine Pregnancy NEGATIVE (NEGATIVE)
[2021-11-07 07:37] VITALS: BP 126/80; PULSE 71; RESP 18; TEMP 36.1; O2SAT 99
[2021-11-07] MEDS: Lactated Ringers 1,000 ML 100 ML IVCONT (07:58)
--- NOTE | 2021-11-07 08:02 | MHC.SHP ---
Pre-Procedural Eval Section A Date of Service: 11/07/21 Section B Chief Complaint: diverticulitis Details of Present Illness: see H&P, no changes Relevant Family History (Specify if Yes): No Relevant Social History: None Present Medications: see Short Stay Collaborative assessment Medical History: No relevant PMH History of Previous Operations: No relevant previous surgery Allergies: Allergies Allergy/AdvReac Type Severity Reaction Status Date / Time No Known Allergies Allergy Unknown UNKNOWN Unverified 11/01/21 13:20 Review of Systems Sugical H&P ROS: Negative: Constitution, Cardiovascular, Respiratory, Neurological, Psychiatric, Hem-Onc, Allergic/Immunologic, Gastrointestinal, Genitourinary, Musculoskeletal, Integumentary, Endocrine and Eyes/Ears/Nose/Throat Exam Surgical H&P Exam: Normal: HEENT, Normal: Heart, Normal: Lungs, Normal: Extremities, Normal: Abdomen, Normal: Skin and Normal: Neurological Plan Diagnosis/Plan: Unchanged I have reviewed the history and physical and performed a pertinent physical examination on my patient. No changes have occurred unless specified.
--- NOTE | 2021-11-07 08:33 | P.BOP_ITS ---
Brief Operative Note Date of Service: 11/07/21 Pre-op diagnosis: diverticulitis Post-op diagnosis: same (diverticulosis) Surgeon: Valentin Glover Anesthesia: MAC Was an Instrument Calibrator used for this Procedure?: No Estimated blood loss (mL): 0 Pathology: none sent Condition: stable Disposition: PACU
[2021-11-07 08:36] VITALS: BP 116/78; PULSE 73; RESP 16; TEMP 36.2; O2SAT 99
[2021-11-07 08:51] VITALS: BP 121/84; PULSE 65; RESP 16; TEMP 36.2; O2SAT 100
--- NOTE | 2021-11-07 12:34 | OP_ITS ---
SURGEON: Valentin Glover MD INDICATIONS: Diverticulitis. PREOPERATIVE DIAGNOSIS: POSTOPERATIVE DIAGNOSIS: PROCEDURE PERFORMED: Colonoscopy to the terminal ileum. ESTIMATED BLOOD LOSS: COMPLICATIONS: ANESTHESIA: ASSISTANTS: SPECIMENS: MEDICATIONS: Monitored anesthesia care. DESCRIPTION OF PROCEDURE: History and physical were performed. The risks and benefits of the procedure were explained to the patient. Informed consent was obtained. The patient was placed in the left lateral decubitus position. A digital rectal exam was performed and was found to be normal. The Olympus pediatric video colonoscope was introduced into the rectum and advanced to the cecum without difficulty. The cecum was identified by transillumination, palpation, and identification of ileocecal valve. Examination was performed. The scope was removed. She tolerated the procedure well was returned to recovery area in stable condition. FINDINGS: The terminal ileum was examined and appeared normal. The visualized colonic mucosa was normal. The quality of the prep was good. There was mild sigmoid diverticulosis with scattered diverticula throughout the remainder of the colon. There was no evidence of diverticulitis. Retroflexed examination showed some small internal hemorrhoids. IMPRESSION: Diverticulosis. RECOMMENDATION: 1. Follow up as needed. 2. Repeat colonoscopy is recommended in 10 years for average risk individuals for screening purposes. MD RILEY Blackman/MELODY / [phone]
== END 2021-11-07 09:37 | disposition home or self-care (01) ==
PROVIDERS: Nurse Practitioner; PCP Internal Medicine; Visit Provider Internal Medicine Gastroenterology
PROC: 0DJD8ZZ Inspection of Lower Intestinal Tract, Via Natural or Artificial Opening Endoscopic (ICD-10-PCS; CPT 45378; principal; 2021-11-07 08:10)
DX: K57.30 Diverticulosis of large intestine without perforation or abscess without bleeding (principal); Z87.19 Personal history of other diseases of the digestive system; K64.8 Other hemorrhoids; E55.9 Vitamin D deficiency, unspecified; Z87.442 Personal history of urinary calculi; Z79.899 Other long term (current) drug therapy; Z87.891 Personal history of nicotine dependence
CPT/HCPCS: 45378; 81025

== ENCOUNTER 2022-03-13 09:42 | Outpatient (REF) | payer OTHER, SELFPAY ==
--- NOTE | ~2022-03-13 | XR_ITS ---
EXAMINATION: XR CHEST CLINICAL INFORMATION: Preop COMPARISON: None TECHNIQUE: 2 views of the chest were obtained. FINDINGS: No significant abnormality is noted involving the heart, lungs, mediastinum, bony thorax or soft tissues. XR/XR chest 2V IMPRESSION: Unremarkable chest examination.
[2022-03-13 10:00] LABS: MANUAL DIFF FLAG NO
[2022-03-13 10:09] LABS: Basophils Percent Auto 0.3 % (0-2); Eosinophils Absolute Auto 0.1 X10*3/uL (0.0-0.4); Eosinophils Percent Auto 1.4 % (0-4); Hematocrit 38.9 % (37.0-47.0); Hemoglobin 12.4 g/dl (12.0-16.0); Imm Gran Abs Auto 0.02 X10*3/uL (0.00-0.03); Imm Gran Pct Auto 0.3 % (0.0-0.4); Lymphocytes Absolute Auto 2.2 X10*3/uL (1.2-4.9); Lymphocytes Percent Auto 28.3 % (20-40); Mean Corpuscular HGB Conc 31.9 g/dl (31.0-35.0); Mean Corpuscular Hemoglobin 27.8 pg (27.0-33.0); Mean Corpuscular Volume 87.2 fL (80.0-98.0); Mean Platelet Volume 10.6 fL (9.4-12.3); Monocytes Absolute Auto 0.3 X10*3/uL (0.1-1.2); Monocytes Percent Auto 4.2 % (2-11); Neutrophils Absolute Auto 5.2 x10*3/uL (2.0-8.3); Neutrophils Percent Auto 65.5 % (45-73); Platelet Count 272 X10*3/uL (160-400); Red Blood Count 4.46 X10*6/uL (4.20-5.50); Red Cell Distribution Width 13.8 % (11.0-16.0); White Blood Count 7.9 X10*3/uL (4.8-10.8)
[2022-03-13 10:14] LABS: Prothrombin Time 11.6 SEC (10.0-13.1)
[2022-03-13 10:17] LABS: Partial Thromboplastin Time 33.8 SEC (26.0-36.4)
[2022-03-13 10:23] LABS: Estimated Average Glucose 105 mg/dL; Hemoglobin A1c % 5.3 %
[2022-03-13 10:42] LABS: Alanine Aminotransferase 22 U/L (0-31); Albumin Level 4.4 g/dL (3.5-5.0); Alkaline Phosphatase 62 U/L (39-117); Anion Gap 16 (12-20); Aspartate Amino Transferase 20 U/L (5-31); Bilirubin Total 0.6 mg/dL (0.0-1.0); Blood Urea Nitrogen 10 mg/dL (9-16); Calcium 9.1 mg/dL (8.4-10.2); Carbon Dioxide 23 mmol/L (22-29); Chloride 105 mmol/L (96-108); Estimated Glomerular Filt Rate > 60; Glucose Random 99 mg/dL (60-115); Potassium 4.6 mmol/L (3.3-5.1); Sodium 139 mmol/L (135-145)
[2022-03-13 10:57] LABS: HIV AB/AG Nonreactive (Nonreactive); HIV Num 1 0.08 S/CO (0.00-0.99); Thyroid Stimulating Hormone 0.43 uIU/mL (0.32-4.0)
== END 2022-03-13 09:43 | disposition home or self-care (01) ==
LOC: HO.LAB 09:42
PROVIDERS: PCP Internal Medicine; Visit Provider Internal Medicine
DX: Z01.818 Encounter for other preprocedural examination (principal)
CPT/HCPCS: 36415; 71046; 80053; 83036; 84439; 84443; 85025; 85610; 85730; 87389

== ENCOUNTER 2022-03-28 09:16 | Outpatient (REF) | payer OTHER, SELFPAY ==
[2022-03-28 10:54] LABS: HCG Quantitative < 2 mIU/mL
== END 2022-03-28 09:17 | disposition home or self-care (01) ==
LOC: HO.LAB 09:16
PROVIDERS: PCP Internal Medicine; Visit Provider Internal Medicine
DX: Z01.818 Encounter for other preprocedural examination (principal)
CPT/HCPCS: 36415; 84702

== ENCOUNTER 2022-05-27 17:57 | Emergency (ER) | payer OTHER, SELFPAY ==
--- NOTE | ~2022-05-27 | XR_ITS ---
EXAMINATION: XR FOOT, LEFT. XR ANKLE, LEFT. CLINICAL INFORMATION: Fall, pain COMPARISON: Left foot 02/05/2020 TECHNIQUE: 3 views of the left foot. 3 views of the left ankle. FINDINGS: The ankle mortise is preserved. No acute fracture or malalignment. There is a heel spur. Otherwise unremarkable. XR/XR ankle LT 2V IMPRESSION: No acute fracture or malalignment of the left foot or ankle.
--- NOTE | ~2022-05-27 | XR_ITS ---
EXAMINATION: XR FOOT, LEFT. XR ANKLE, LEFT. CLINICAL INFORMATION: Fall, pain COMPARISON: Left foot 02/05/2020 TECHNIQUE: 3 views of the left foot. 3 views of the left ankle. FINDINGS: The ankle mortise is preserved. No acute fracture or malalignment. There is a heel spur. Otherwise unremarkable. XR/XR foot LT 2V IMPRESSION: No acute fracture or malalignment of the left foot or ankle.
[2022-05-27 18:02] VITALS: BP 111/77; PULSE 83; RESP 18; TEMP 37.2; O2SAT 100; BMI 27.6
--- NOTE | 2022-05-27 18:06 | ED.LOWEXIN ---
HPI - Extremity Injury (Lower) General Chief Complaint: Extremity Injury, Lower Stated Complaint: fall, ankle pain Time Seen by Provider: 05/27/22 18:38 Source: patient Mode of arrival: wheelchair Limitations: no limitations History of Present Illness HPI Narrative: 36-year-old female previously healthy here with left ankle and foot pain after a trip and fall down several stairs. Patient reports she had an inversion injury of the ankle. Now pain with weight-bearing. No weakness, numbness or tingling of the extremity. No head strike or loss of consciousness. Related Data Home Medications Medication Instructions Recorded Confirmed cholecalciferol (vitamin D3) 50 50 mcg PO DAILY 11/01/21 11/01/21 mcg (2,000 unit) capsule (Vitamin D3) fluticasone propionate 50 1 spray intranasal BID 11/01/21 11/01/21 mcg/actuation nasal spray,suspension Previous Rx's Medication Instructions Recorded ibuprofen 600 mg tablet 600 mg PO Q6H PRN pain #30 tabs 05/27/22 Allergies Allergy/AdvReac Type Severity Reaction Status Date / Time No Known Allergies Allergy Unknown UNKNOWN Unverified 11/01/21 13:20 Review of Systems Review of Systems: Yes all other systems are reviewed and are negative Constitutional: Constitutional: Reports no additional constitutional complaints, Denies body ache(s), Denies chills, Denies fever(s), Denies headache(s) and Denies weakness Eyes: Eyes: Reports no additional eye complaints and Denies change in vision ENT: Reports system reviewed and no additional complaints, except as documented, Denies dizziness, Denies headache(s), Denies nasal congestion, Denies nasal discharge and Denies neck pain Cardiovascular: Cardiovascular: Reports no additional cardiovascular complaints, Denies chest pain, Denies leg edema and Denies dyspnea Respiratory: Respiratory: Reports no additional respiratory complaints, Denies cough and Denies dyspnea Gastrointestinal: Gastrointestinal: Reports no additional gastrointestinal complaints, Denies abdominal pain, Denies diarrhea, Denies nausea and Denies vomiting Genitourinary: Genitourinary: Reports no additional female genitourinary complaints and Denies urinary incontinence Musculoskeletal: Musculoskeletal: Reports no additional musculoskeletal complaints, Denies back pain, Reports arthralgias, Reports joint swelling, Denies neck pain, Denies numbness and Denies tingling Integumentary/Breasts: Skin/Breast: Reports system reviewed and no additional complaints, except as docu and Denies rash Neurologic: Reports system reviewed and no additional complaints, except as documented, Denies Abnormal speech present, Denies dizziness, Denies headache(s), Denies numbness, Denies tingling and Denies weakness PMFSH Past Medical History Attestation statement: The following information was validated with the patient. Source: old records reviewed and nursing notes reviewed Medical History History of depression History of diverticulitis History of renal stone Vitamin D deficiency Surgical History History of cystoscopy History of cystoscopy Hx of section Social History Social History Patient Tobacco Use Status: Former Tobacco user Quit Date: 2 months ago Advance Directives: No Advance Directives Information Provided: Yes Physical Exam Vital Signs: Vital Signs: Last Vital Signs Temp 98.9 F 05/27/22 18:02 Pulse 83 05/27/22 18:02 Resp 18 05/27/22 18:02 BP 111/77 05/27/22 18:02 Pulse Ox 100 05/27/22 18:02 O2 Del Method 05/27/22 18:02 BMI result Body Mass Index 27.6 Const: General: cooperative, healthy appearing, comfortable and no acute distress Orientation/consciousness: patient oriented x3 Limitations: no limitations HEENT: Head: Yes normal to inspection Ears: hearing grossly normal bilaterally General nose exam: Normal external nose present Face and sinus: Yes normal facial exam Mouth: Normal oral and palatal mucosa present Throat: Yes posterior oropharynx normal Eyes: General: appearance normal, both eyes and all related structures Pupils: Equal, round and reactive pupils present Neck: Neck: Yes normal visual inspection Chest: Chest palpation & inspection: normal inspection of the chest Resp: Effort & Inspection: normal respiratory effort Auscultation: clear to auscultation bilaterally Cardio: Rate: regular rate Rhythm: regular rhythm Peripheral pulses: Peripheral pulses 2+ throughout GI: Inspection: Yes normal to inspection Palpation (GI): Soft to palpation and nontender Auscultation: normal bowel sounds Back/Spine/Pelvis: Thoracic/Lumbar Spine: thoracic and lumbar spine normal to inspection Skin: General skin exam: no rashes or lesions noted Neuro: General: patient oriented x3, no focal motor deficits and normal sensation to monofilament Cranial nerves: Yes Equal, round and reactive pupils present Cognition (Neuro): normal cognition Speech: No Abnormal speech present Gait exam (Neuro): Normal gait present Motor exam (neuro): 5/5 motor strength present throughout Extrem: Other: There is tenderness and swelling over the left lateral ankle and over the base of the foot. There is full range of motion of the ankle and foot. Sensation is normal distally. Palpable DP and PT pulses. Skin is pink warm dry. Negative Goss test. General: Yes normal to inspection Course Course Course Narrative: This is a rapid medical exam. Deferred HPI, ROS, PE to primary provider. 36 yo female trip and fall down stairs now with left ankle/foot pain. No head strike or LOC. Pain w/ weight bearing. will check x-rays. VSS Reevaluation(s) Reevaluation #1: X-rays of the left foot and ankle are negative for any fracture. Likely sprain. Patient placed in air cast and given crutches for home. Reviewed rice. Reviewed worrisome signs and symptoms when to return to the emergency room. Comfortable plan for discharge home. Medications Administered Discontinued Medications Generic Name Dose Route Start Last Admin Trade Name Venkatq PRN Reason Stop Dose Admin Ibuprofen 600 mg 05/27/22 18:06 05/27/22 18:07 Ibuprofen 600 Mg Tablet PO 05/27/22 18:07 600 mg ONCE ONE Administration MDM - Extremity Injury (Lower) MDM Narrative Medical decision making narrative: 36-year-old female here with left ankle and foot pain after an inversion injury which occurred just prior to arrival. Will check x-rays Consider fracture, sprain Medical Records Attestation: I reviewed the patient's medical records. Lab Data Attestation: I reviewed the patient's lab results. Imaging Data ankle/foot x-ray: Attestation: I personally reviewed and interpreted this imaging study as follows: Radiologist's impression: [address] [address] XRay Report Signed Patient: Felicia Parekh MR#: [id number] : 1985 Acct:[id number] Age/Sex: 36 / F ADM Date: 05/27/22 Loc: HO.ED Attending Dr: Ordering Physician: Dolores Valles NP Date of Service: 05/27/22 Procedure(s): XR ankle LT 2V Accession Number(s): [id number] cc: Dolores Valles NP~ EXAMINATION: XR FOOT, LEFT. XR ANKLE, LEFT. CLINICAL INFORMATION: Fall, pain? COMPARISON: Left foot 02/05/2020? TECHNIQUE: 3 views of the left foot. 3 views of the left ankle.? FINDINGS: The ankle mortise is preserved. No acute fracture or malalignment. There is a heel spur. Otherwise unremarkable.? XR/XR ankle LT 2V IMPRESSION: No acute fracture or malalignment of the left foot or ankle. ? Discharge Plan Discharge Clinical Impression: Ankle sprain and strain Patient Disposition: Home, Self-Care Instructions: Ankle Sprain (ED) Additional Instructions: Ice to the area, elevation Use the air splint and crutches for the next few days with nonweightbearing Motrin or Tylenol for pain as needed Follow-up with primary care doctor for any persistent symptoms Prescriptions: New ibuprofen 600 mg tablet 600 mg PO Q6H PRN (Reason: pain) Qty: 30 0RF No Action fluticasone propionate 50 mcg/actuation spray,suspension 1 spray intranasal BID cholecalciferol (vitamin D3) [Vitamin D3] 50 mcg (2,000 unit) Capsule 50 mcg PO DAILY Referrals: Physician,Unknown J [Primary Care Provider] - Stand Alone Forms: Work/School Release
[2022-05-27] MEDS: Ibuprofen 600 MG TABLET PO (18:07)
== END 2022-05-27 19:30 | disposition home or self-care (01) ==
PROVIDERS: Emergency Provider Internal Medicine
DX: S93.402A Sprain of unspecified ligament of left ankle, initial encounter (principal); W10.9XXA Fall (on) (from) unspecified stairs and steps, initial encounter; Y93.9 Activity, unspecified; Y92.9 Unspecified place or not applicable; Y99.9 Unspecified external cause status
CPT/HCPCS: 73600; 73620; 99283

== ENCOUNTER 2022-08-16 14:08 | Outpatient (REF) | payer OTHER, SELFPAY ==
[2022-08-16 14:27] LABS: MANUAL DIFF FLAG NO
[2022-08-16 15:30] LABS: Basophils Percent Auto 0.2 % (0-2); Eosinophils Absolute Auto 0.1 X10*3/uL (0.0-0.4); Eosinophils Percent Auto 0.9 % (0-4); Hematocrit 40.1 % (37.0-47.0); Hemoglobin 12.8 g/dl (12.0-16.0); Imm Gran Abs Auto 0.03 X10*3/uL (0.00-0.03); Imm Gran Pct Auto 0.3 % (0.0-0.4); Lymphocytes Absolute Auto 2.1 X10*3/uL (1.2-4.9); Lymphocytes Percent Auto 23.5 % (20-40); Mean Corpuscular HGB Conc 31.9 g/dl (31.0-35.0); Mean Corpuscular Hemoglobin 27.8 pg (27.0-33.0); Monocytes Absolute Auto 0.4 X10*3/uL (0.1-1.2); Neutrophils Absolute Auto 6.5 x10*3/uL (2.0-8.3); Neutrophils Percent Auto 71.1 % (45-73); Platelet Count 299 X10*3/uL (160-400); Red Blood Count 4.61 X10*6/uL (4.20-5.50); Red Cell Distribution Width 14.1 % (11.0-16.0); White Blood Count 9.1 X10*3/uL (4.8-10.8)
[2022-08-16 15:37] LABS: Estimated Average Glucose 105 mg/dL; Hemoglobin A1c % 5.3 %
[2022-08-16 15:40] LABS: Partial Thromboplastin Time 32.3 SEC (26.0-36.4)
[2022-08-16 15:50] LABS: Appearance Urine Cloudy; Color Urine Yellow; Glucose Urine UA Negative (Negative); Leukocyte Esterase Urine Small (1+) (Negative); Nitrite Urine Negative (Negative); PH 5.5 (5.0-9.0); Specific Gravity - Urine >= 1.030 (1.005-1.025); UMIC TRIGGER UACC YES; Urine Blood Negative (Negative); Urine Ketones Negative (Negative); Urine Protein Trace mg/dL (Neg-Trace)
[2022-08-16 16:03] LABS: Bacteria Urine 3+ (None Seen); Hyaline Casts Urine 0-2 /LPF (0-2); RBC Urine 0-2 /HPF (0-2); UACC Culture Trigger YES; WBC Urine 0-5 /HPF (0-5)
[2022-08-16 16:09] LABS: Alanine Aminotransferase 28 U/L (0-31); Albumin Level 4.5 g/dL (3.5-5.0); Alkaline Phosphatase 71 U/L (39-117); Anion Gap 13 (12-20); Aspartate Amino Transferase 22 U/L (5-31); Bilirubin Total 0.8 mg/dL (0.0-1.0); Blood Urea Nitrogen 12 mg/dL (9-16); Calcium 9.7 mg/dL (8.4-10.2); Carbon Dioxide 25 mmol/L (22-29); Chloride 107 mmol/L (96-108); Estimated Glomerular Filt Rate > 60; Glucose Random 84 mg/dL (60-115); Potassium 4.4 mmol/L (3.3-5.1); Sodium 141 mmol/L (135-145); Total Protein 7.5 g/dL (6.5-8.0)
[2022-08-16 16:26] LABS: Free T4 (Free Thyroxine) 1.14 ng/dL (0.71-1.85); HCG Quantitative < 2 mIU/mL; Thyroid Stimulating Hormone 0.73 uIU/mL (0.32-4.0)
[2022-08-17 06:24] LABS: HIV AB/AG Nonreactive (Nonreactive); HIV Num 1 0.11 S/CO (0.00-0.99)
[2022-08-21 12:58] LABS: Triiodothyronine T3 Reverse 17 ng/dL (8-25)
== END 2022-08-16 14:09 | disposition home or self-care (01) ==
LOC: HO.LAB 14:08
PROVIDERS: PCP Internal Medicine; Visit Provider Internal Medicine
DX: Z01.818 Encounter for other preprocedural examination (principal); Z11.4 Encounter for screening for human immunodeficiency virus [HIV]
CPT/HCPCS: 36415; 80053; 81001; 83036; 84439; 84443; 84482; 84702; 85025; 85610; 85730; 87086; 87389

== ENCOUNTER 2023-04-03 13:24 | Outpatient (REF) | payer OTHER, SELFPAY ==
[2023-04-05 17:39] LABS: TS Negative Control Passed; TS Panel A 0; TS Panel B 0; TS Positive Control Passed; TSpotTB Negative (Negative)
== END 2023-04-03 13:25 | disposition home or self-care (01) ==
LOC: HO.LAB 13:24
PROVIDERS: PCP Internal Medicine; Visit Provider Internal Medicine
DX: Z11.1 Encounter for screening for respiratory tuberculosis (principal)
CPT/HCPCS: 36415; 86481

== ENCOUNTER 2023-11-20 11:00 | Outpatient (REF) | payer OTHER, SELFPAY ==
[2023-11-20 13:30] LABS: Thyroid Stimulating Hormone 0.44 uIU/mL (0.32-4.0)
[2023-11-20 13:39] LABS: Vitamin B12 423 pg/mL (200-900)
== END 2023-11-20 11:01 | disposition home or self-care (01) ==
LOC: HO.LAB 11:00
PROVIDERS: PCP Internal Medicine; Visit Provider Internal Medicine
DX: R53.83 Other fatigue (principal)
CPT/HCPCS: 36415; 82607; 84443

== ENCOUNTER 2023-11-26 14:31 | Outpatient (AMB) | payer OTHER, SELFPAY ==
--- NOTE | 2023-11-26 14:36 | A.OFFVIS_ITS ---
Vital Signs 3 11/26/23 14:42 Height 5 ft 3 in Weight 158 lb 11.725 oz BMI 28.1 Pulse 72 Intake Visit Reasons: skin lesion Intake Note: Patient is seen in office for evaluation and treatment of a skin lesion of the neck. Pt c/o:onset yrs, admits to some pain, denies redness, discharge, increase/decrease, no prior imaging done Calf Skinner Required: No Accompanied by: Self / Same As Patient Allergies No Known Allergies Allergy (Unknown, Unverified 11/26/23 14:43) UNKNOWN Medication List - Last Reconciled 11/26/23 by Best Zavala MD No Known Home Meds HPI Comments Details: 37-year-old female patient presenting for evaluation of several skin lesions notably to brown lesions located on the left neck. She denies any redness or discharge. She denies a previous history of trauma in this location. The lesion seemed to have increased in size since 1st being noted. She is requesting excision. [facility] Medical History Vitamin D deficiency History of renal stone History of depression History of diverticulitis Surgical History History of liposuction of abdomen History of cystoscopy History of cystoscopy Hx of section Social History Patient Tobacco Use Status: Former Tobacco user Review of Systems Const All systems reviewed & are unremarkable except as noted in HPI and below Physical Exam Vital Signs: Last Vital Signs Pulse 72 11/26/23 14:42 BMI result Body Mass Index 28.1 Const General: cooperative and no acute distress Nutritional Appearance: well nourished Orientation/consciousness: patient oriented x3 Limitations: no limitations HEENT Head: Yes normocephalic and Yes atraumatic Head images: 2 1. Brown slightly raised pedunculated skin lesion 1 mm diameter and 1 mm high 2. Brown slightly raised pedunculated skin lesion 1 mm diameter and 1 mm high Ears: hearing grossly normal bilaterally Resp Effort & Inspection: normal respiratory effort, no audible wheezes, no cough and no respiratory distress Cardio Jugular venous distension: no JVD GI Inspection: Yes normal to inspection Skin Other: Warm, dry, no rash Neuro General: patient oriented x3 Extrem General: Yes no clubbing, cyanosis or edema Office Procedures Skin Tag Removal Details: Two 1 mm benign skin tags excised using a sharp scissors. Skin tag removal performed by: Best Zavala Informed consent given: Yes Consent signed: No Time out checklist: patient, procedure, site marked/identified, allergies confirmed and team agrees on procedure Time out date: 11/26/23 Time out time: 14:58 Location: neck Preparation: betadine Hemostasis: pressure Patient tolerated procedure: well Complications: No Assessment & Plan Assessment & Plan (1) Skin lesion of neck: Code(s): L98.9 - Disorder of the skin and subcutaneous tissue, unspecified Category: Medical Plan 37-year-old female presenting with 2 skin tags the site of the neck left side. These were excised with a sharp scissors without local. She tolerated the procedure very well. She should follow up as needed. Medications: Discontinued 2 ibuprofen Discontinued Reason: Patient Completed Course 600 mg PO Q6H PRN 30 tabs 0RF pain Coding Level of Care Code New Pt Level 4 (54520) Diagnoses Skin lesion of neck L98.9
[2023-11-26 14:42] VITALS: PULSE 72; BMI 28.1
== END 2023-11-26 14:55 | disposition home or self-care (01) ==
PROVIDERS: PCP Internal Medicine; Referring Provider Internal Medicine; Visit Provider Surgery
DX: L98.9 Disorder of the skin and subcutaneous tissue, unspecified (principal)
CPT/HCPCS: 11200; 99204

== ENCOUNTER → 2023-11-26 14:31 | Outpatient (BNVA) | payer OTHER, SELFPAY | PROVIDERS: PCP Internal Medicine; Referring Provider Internal Medicine; Visit Provider Surgery | DX: L98.9 Disorder of the skin and subcutaneous tissue, unspecified (principal) | CPT/HCPCS: 11200; 99202 ==

== ENCOUNTER 2024-09-11 16:09 | Outpatient (AMB) | payer OTHER, SELFPAY ==
[2024-09-11 16:15] VITALS: BP 116/70; PULSE 68; RESP 14; TEMP 36.6; O2SAT 98; BMI 25.3
--- NOTE | 2024-09-11 16:15 | MHC.PC.OV ---
Vital Signs 09/11/24 16:15 Height 5 ft 3 in Weight 143 lb BMI 25.3 BP 116/70 Respiration 14 Pulse 68 Pulse Source Pulse Oximeter Temp 97.9 F Temp Source Temporal Artery Scan Pulse Oximetry (%) 98 Oxygen Delivery Method Room Air Intake Visit Reasons: Same day appt Practice Support Specialist Required: No Accompanied by: Self / Same As Patient Allergies No Known Allergies Allergy (Unknown, Unverified 09/11/24 16:15) UNKNOWN Tobacco use date assessed: 09/11/24 Dental Screening Dental Screen Date: 09/11/24 Did you have a dental visit in the last 12 months?: Yes Did you have a dental problem in the last 6 months where you did not have access to dental care?: No HPI HPI Comments History of Present Illness Details 38 year old female presenting for foot pain & uti Right foot pain-lateral sole into heel. Works a lot on her feet. Increases with use. No redness or visible swelling Recently in urgent care. Diagnosed with UTI. didnt grape picker the medications. Now having increased dysuria. denies fevers, flank pain ROS see HPI PHYSICAL EXAM: GENERAL: Alert and oriented x 3. NAD EYES: EOMI. Anicteric. HENT: Moist mucous membranes. No scleral icterus. No cervical lymphadenopathy. LUNGS: Clear to auscultation bilaterally. CARDIOVASCULAR: Regular rate and rhythm. No murmur. No JVD. ABDOMEN: Soft, non-tender +bs EXTREMITIES: No edema. Non-tender. Left foot normal appearance. Mild ttp below the malleolus. FROM SKIN: No rashes or lesions. Warm. NEUROLOGIC: No focal neurological deficits. CN II-XII grossly intact PSYCHIATRIC: Cooperative. Appropriate mood and affect [facility]LY [facility] Medical History Vitamin D deficiency History of renal stone History of depression History of diverticulitis Surgical History History of liposuction of abdomen History of cystoscopy History of cystoscopy Hx of section Family History Father No problems noted. Mother High blood pressure Social History Housing: Apartment Patient Tobacco Use Status: Former Tobacco user service: No Current occupational status: employed Cognitive needs: No Hearing needs: No Vision needs: Yes (rx contacts) Questionnaire PHQ-9 Over the last 2 weeks, how often have you been bothered by any of the following problems? 1. Little interest or pleasure in doing things: not at all 2. Feeling down, depressed, or hopeless: not at all 3. Trouble falling or staying asleep, or sleeping too much: not at all 4. Feeling tired or having little energy: not at all 5. Poor appetite or overeating: not at all 6. Feeling bad about yourself - or that you are a failure or have let yourself or your family down: not at all 7. Trouble concentrating on things, such as reading the newspaper or watching television: not at all 8. Moving or speaking so slowly that other people could have noticed. Or the opposite - being so fidgety or restless that you have been moving around a lot more than usual: not at all 9. Thoughts that you would be better off or of hurting yourself in some way: not at all Total score: 0 Depression Screening Interpretation: Negative Depression Screening Done: Yes 49526 - PHQ-9 Billing: Yes Source: Developed by Drs. Herve Wadsworth, Shannon Rogers, Tian Syed and colleagues, with an educational daniel from [employer] AUDIT C Alcohol Use Questionnaire (AUDIT-C) 1. How often do you have a drink containing alcohol?: Monthly or less 2. How many drinks containing alcohol do you have on a typical day when you are drinking?: 1 or 2 3. How often do you have six or more drinks on one occasion?: Never Total Score: 1 MAYI-7 AMB Questionnaire MAYI-7 Date MAYI - 7 assessed: 09/11/24 Feeling nervous, anxious, or on edge: 0 = Not at all Not being able to stop or control worryin = Not at all Worrying too much about different things: 0 = Not at all Trouble relaxin = Not at all Being so restless that it is hard to sit still: 0 = Not at all Becoming easily annoyed or irritable: 0 = Not at all Feeling afraid as if something awful might happen: 0 = Not at all Total MAYI-7 score (0-4 normal; 5-9 mild; 10-14 moderate; 15-21 severe): 0 Source: Developed by Drs. Herve Wadsworth, Shannon Rogers, Tian Syed and colleagues, with an educational daniel from [employer] Physical exam (Primary Care) Vital Signs: Last Vital Signs Temp 97.9 F 09/11/24 16:15 Pulse 68 09/11/24 16:15 Resp 14 09/11/24 16:15 BP 116/70 09/11/24 16:15 Pulse Ox 98 09/11/24 16:15 Oxygen Delivery Method Room Air 09/11/24 16:15 BMI result Body Mass Index 25.3 Tobacco/Smoking Status: Tobacco use Status Tobacco use date assessed 09/11/24 09/11/24 16:21 Patient Tobacco Use Status Former Tobacco user 09/11/24 16:21 PHQ-9: PHQ-9 Score PHQ-9: Total score 0 09/11/24 16:24 Depression Screening Interpretation: Negative Coding Level of Care Code Est Pt Level 4 (65575) Diagnoses Left foot pain M79.672 Additional Codes PHQ-9 - 84924 - PHQ-9 Billing: Yes ([id number]) Assessment & Plan Assessment & Plan (1) Left foot pain: Code(s): M79.672 - Pain in left foot Category: Medical Plan: referral to orthopedics placed Voltaren sent Prednisone sent Abx sent for UTI previously diagnosed Orders: Referrals Orthopedics Referral M79.672 - Pain in left foot Medications: New nitrofurantoin monohyd/m-cryst 100 mg (Macrobid) must administer with a meal/food 100 mg PO Q12H 7 days 14 caps 0RF nitrofurantoin monohyd/m-cryst 100 mg (Macrobid) must administer with a meal/food 100 mg PO Q12H 14 caps 0RF 7 days diclofenac sodium 1% (Voltaren Arthritis Pain) apply to single knee, ankle, foot; for foot includes sole/toes/top of foot 4 grams topical QID 100 grams 1RF prednisone 40 mg (2 x 20 mg) PO DAILY 10 tabs 0RF
--- OUTSIDE RECORDS SUMMARY | 2024-09-11 17:32 | XMS_ITS | Clinical Summary ---
Author Organization [facility] Address [address] [place] [address] Phone Care Team Providers Care Printing Press Machinist Name Role Phone Zne Corona MD Primary Care Provider [phone] Allergies No known active allergies Medications No known medications Active Problems No known active problems Surgical History Surgery Date Site/Laterality Comments KIDNEY STONE SURGERY 06/24/2003 PROCEDURE: IN NEPHROLITHOTOMY REMOVAL CALCULUS Medical History Medical History Date Comments Anemia affecting i n second trimester 08/27/2016 DX:Anemia affecting pregnanc y in second trimester SIDS (sudden infant syndrome) 08/2017 DX:SIDS (sudden infant syndrome); COMMENT: 05/06/2018 - Pt gave permission for me to contact [facility]; also made appointment with [facility] Family History Medical History Relation Name Comments No Known Problems Brother x3 No Known Problems Father Coronary artery disease Maternal Grandfather 2 mo after heart surgery Diabetes Maternal Grandfather Hypertension Mother on med No Known Problems Sister x4 Breast cancer Neg Hx Ovarian cancer Neg Hx Relation Name Status Comments Brother x3 Father Alive Maternal Grandfather Mother Alive Sister x4 Social History Tobacco Use Types Packs/Day Years Used Date Smoking Tobacco: Former Cigarettes Smokeless Tobacco: Never Tobacco Cessation:Counseling Given: Not Answered Alcohol Use Standard Drinks/Week Comments No 0 (1 standard drink = 0.6 oz pur e alcohol) Comments Unknown Sex and Gender Information Value Date Recorded Sex Assigned at Not on file Legal Sex Female 5:43 PM EST Gender Identity Not on file Sexual Orientation Not on file Obstetrics History Last Filed Vital Signs Vital Sign Reading Time Taken Comments Blood Pressure 110/78 05/19/2024 7:30 PM EST Pulse 60 05/19/2024 7:30 PM EST Temperature 36.6 ??C (97.9 ??F) 05/19/2024 5:30 PM ES T Respiratory Rate 18 05/19/2024 7:30 PM EST Oxygen Saturation 97% 05/19/2024 7:30 PM EST Inhaled Oxygen Concentration - - Weight 68 kg (150 lb) 05/19/2024 5:30 PM EST Height 160 cm (5' 3 ) 05/19/2024 5:30 PM EST Body Mass Index 26.57 05/19/2024 5:30 PM EST Plan of Treatment Health Maintenance Due Date Last Done Comments DTaP,Tdap,and Td Vaccines (1 - Tdap) 02/13/2005 Hepatitis B Vaccines (1 of 3 - 19+ 3-dose series) 02/13/2005 Depression Screening 05/26/2022 HIV Screening 05/26/2022 Hepatitis C Screening 05/26/2022 Social Influencers of Health Screening 05/26/2022 Cervical Cancer Screening: P ap Smear 02/08/2024 02/07/2021, 05/06/2018, 05/06/2018 COVID-19 Vaccine (1 - 2023-2 5 season) 2024 Influenza Vaccine (#1) 2024 HIB Vaccines Aged Out No longer eligi ble based on patient's age to complete this topic HPV Vaccines Aged Out No longer eligi ble based on patient's age to complete this topic Hepatitis A Vaccines Aged Out No long er eligible based on patient's age to complete this topic IPV Vaccines Aged Out No longer eligi ble based on patient's age to complete this topic MMR Vaccines Aged Out No longer eligi ble based on patient's age to complete this topic Meningococcal ACWY Vaccine Aged Out N o longer eligible based on patient's age to complete this topic Meningococcal B Vacine Aged Out No lo nger eligible based on patient's age to complete this topic Pneumococcal Vaccine: Pediatrics (0 to 5 Years) and At-Risk Patients (6 to 64 Years) Aged Out No longer eligible b ased on patient's age to complete this topic RSV Immunization Patients Under 20 months Aged Out No longer eligible b ased on patient's age to complete this topic Varicella Vaccines Aged Out No longer eligible based on patient's age to complete this topic Procedures Procedure Name Priority Date/Time Associated Diagnosis Comments PAP SMEAR Routine 02/07/2021 from Last 3 Months or Most Recently Relevant to Health Maintenance Results * Pap smear (02/07/2021) 02/07/2021 Narrative HISTORICAL TESTING LAB RESULTING AGENCY - 02/14/2021 3:45 PM EDT [id number] THINPREP PAP, IMAGED: NEGATIVE FOR SQUAMOUS INTRAEPITHELIAL LESION AND MALIGNANCY . CLUE CELLS ARE PRESENT. MEGAN BUTTERFIELD(ASCP) (CASE ELECTRONICALLY SIGNED 02 14 2021) RESULT OF APTIMA HIGH RISK HPV ASSAY: HIGH RISK HPV: ??NEGATIVE (SEROTYPES 16,18,31,33,35,39,45,51,52,56,58,59,66,68) COMPLETED ON 2021-02-10 ADEQUACY: SATISFACTORY ENDOCERVICAL/TRANSFORMATION ZONE COMPONENT PRESENT. SOURCE: THINPREP PAP HPV ANY DX: ??REFLEX 16 AND 18, CERVICAL, IMAGED CLINICAL INFORMATION: HPV ANY DIAGNOSIS. HORMONES, PAP HX NEG 2018, Z12.4, LMP 01/31/21. Drea Bejarano [facility] LAB CYTOLOGY ORDERABLES Final Result HISTORICAL TESTING LAB RESULTING AGENCY from Last 3 Months or Most Recently Relevant to Health Maintenance Insurance [employer] Care Teams Printing Press Machinist Relationship Specialty Start Date End Date Zen Corona MD [address] [place] [address] Dr Malathi [place] PCP - General Internal Medicine 11/04/17
== END 2024-09-11 16:36 | disposition home or self-care (01) ==
LOC: HO.HMCHD 16:10
PROVIDERS: PCP Internal Medicine; Visit Provider Internal Medicine
DX: M79.672 Pain in left foot (principal)

== ENCOUNTER → 2024-09-11 16:09 | Outpatient (BNVA) | payer OTHER, SELFPAY | PROVIDERS: PCP Internal Medicine; Visit Provider Internal Medicine | DX: M79.672 Pain in left foot (principal); N39.0 Urinary tract infection, site not specified | CPT/HCPCS: 96127; 99212 ==

== ENCOUNTER 2025-06-15 20:29 | Emergency (ER) | payer OTHER, SELFPAY ==
--- NOTE | ~2025-06-15 | XR_ITS ---
CLINICAL HISTORY: pain 4 view left knee Comparison: None provided Findings: Bones intact. No dislocations. No significant arthritic change or erosions. No joint effusion. No radiopaque foreign body. IMPRESSION: No acute osseous abnormality. This document has been electronically signed by: Tammie Draper MD on 06/15/2025 21:17:09
[2025-06-15 20:40] VITALS: BP 115/67; PULSE 71; RESP 18; TEMP 37.1; O2SAT 98; BMI 24.8
--- OUTSIDE RECORDS SUMMARY | 2025-06-15 21:37 | XMS_ITS | Clinical Summary ---
Author Organization [facility] Address [address] [place] [address] Phone Care Team Providers Care Landscape Contractor Name Role Phone Zen Corona MD Primary Care Provider [phone] Allergies No known active allergies Medications No known medications Active Problems No known active problems Surgical History Surgery Date Site/Laterality Comments KIDNEY STONE SURGERY 06/24/2003 PROCEDURE: MD NEPHROLITHOTOMY REMOVAL CALCULUS Medical History Medical History Date Comments Anemia affecting i n second trimester 08/27/2016 DX:Anemia affecting pregnanc y in second trimester SIDS (sudden syndrome) 08/2017 DX:SIDS (sudden syndrome); COMMENT: 05/06/2018 - Pt gave permission for me to contact [facility]; also made appointment with [facility] Family History Medical History Relation Name Comments [...] on file Sexual Orientation Not on file Last Filed Vital Signs Vital Sign Reading Time Taken Comments Blood Pressure 110/78 05/19/2024 7:30 PM EST Pulse 60 05/19/2024 7:30 PM EST Temperature 36.6 C (97.9 F) 05/19/2024 5:30 PM EST Respiratory Rate 18 05/19/2024 7:30 PM EST [...] of 3 - 19+ 3-dose series) 02/13/2005 HPV Vaccines (1 - 3-dose SCD M series) 02/13/2013 HIV Screening 05/26/2022 Hepatitis C Screening 05/26/2022 Social Influencers of Health Screening 05/26/2022 Cervical Cancer Screening: P ap Smear 02/08/2024 02/07/2021, 05/06/2018, 05/06/2018 Depression Screening 06/24/2024 COVID-19 Vaccine (1 - 2024-2 6 season) 2025 Influenza Vaccine (#1) 2025 RSV Immunization Adult Patients (1 - 1-dose 75+ series) 02/13/2061 HIB Vaccines Aged Out No longer eligi [...] age to complete this topic Meningococcal B Vaccine Aged Out No l onger eligible based on patient's age to complete this topic Pneumococcal Vaccine: Pediatrics (0 to 5 Years) and At-Risk Patients (6 to 49 Years) Aged Out No longer eligible b [...] RESULTING AGENCY - 02/14/2021 3:45 PM EDT [id number] THINPREP PAP, IMAGED: NEGATIVE FOR SQUAMOUS INTRAEPITHELIAL LESION AND MALIGNANCY . CLUE CELLS ARE PRESENT. MEGAN BUTTERFIELD(ASCP) (CASE ELECTRONICALLY SIGNED 02 14 2021) RESULT OF APTIMA HIGH RISK HPV ASSAY: HIGH RISK HPV: NEGATIVE (SEROTYPES 16,18,31,33,35,39,45,51,52,56,58,59,66,68) COMPLETED ON 2021-02-10 ADEQUACY: SATISFACTORY ENDOCERVICAL/TRANSFORMATION ZONE COMPONENT PRESENT. SOURCE: THINPREP PAP HPV ANY DX: REFLEX 16 AND 18, CERVICAL, IMAGED CLINICAL INFORMATION: HPV ANY DIAGNOSIS. HORMONES, PAP HX NEG 2018, Z12.4, LMP 01/31/21. Drea Bejarano [facility] LAB CYTOLOGY ORDERABLES Final Result HISTORICAL TESTING LAB RESULTING AGENCY from Last 3 Months or Most Recently Relevant to Health Maintenance Insurance [employer] Care Teams Landscape Contractor Relationship Specialty Start Date End Date Zen Corona MD [address] [place] [address] Dr Malathi [place] PCP - General Internal Medicine 11/04/17
--- NOTE | 2025-06-15 21:50 | ED_ITS ---
HPI - Extremity Problem General Chief complaint: Extremity Injury, Lower Stated complaint: L knee pain Time Seen by Provider: 06/15/25 21:31 Source: patient Mode of arrival: ambulatory Limitations: no limitations History of Present Illness ED Provider: ALLYSSA CARDONA Narrative: 39-year-old female with no significant past medical history comes in with complaint of abrupt onset left prepatellar pain she denies any trauma to this area or overuse. She denies any injury. She has used ice. She has not taken any bwjj-iog-bjcjkyx meds. She is able to move the leg but has pain at that area. She denies any rash. She has not injected any drugs Complaint: joint pain Onset (ago): day(s) (1) Pain Consistency: constant Location: left and knee Quality: aching Radiation: distal Relieving factors: immobilization Exacerbating factors: walking and palpation Associated symptoms: denies other symptoms Related Data Previous Rx's ?Medication ?Instructions ?Recorded nitrofurantoin 100 mg PO Q12H 7 days #14 ca ps 09/11/24 monohydrate/macrocrystals 100 mg capsule (Macrobid) prednisone 20 mg tablet 40 mg (2 x 20 mg) PO DAILY # 10 tabs 09/11/24 diclofenac sodium 1 % topical gel 4 g topical QID #100 grams 10/02/24 (Voltaren Arthritis Pain) cyclobenzaprine 10 mg tablet 10 mg PO TID PRN muscle s pasm #20 06/15/25 tabs ketorolac 10 mg tablet 10 mg PO TID PRN pain 5 days #15 06/15/25 tabs Allergies Allergy/AdvReac Type Severity Reaction Status Date / Time No Known Allergies Allergy Unknown UNKNOWN Verified 06/15/25 20:42 Review of Systems Review of Systems: Yes all other systems are reviewed and are negative [facility]LY [facility] Past Medical History Attestation statement: The following information was validated with the patient. Source: old records reviewed Medical History Vitamin D deficiency History of renal stone History of depression History of diverticulitis Surgical History History of liposuction of abdomen History of cystoscopy History of cystoscopy Hx of section Family History Family History Father No problems noted. Mother High blood pressure Social History Social History Housing: Apartment Patient Tobacco Use Status: Former Tobacco user Advance Directives: No Advance Directives Information Provided: No service: No Current occupational status: employed Cognitive needs: No Hearing needs: No Vision needs: Yes (rx contacts) Physical Exam Vital Signs: Vital Signs: Last Vital Signs Temp 98.7 F 06/15/25 20:40 Pulse 71 06/15/25 20:40 Resp 18 06/15/25 20:40 BP 115/67 06/15/25 20:40 Pulse Ox 98 06/15/25 20:40 O2 Del Method Room Air 06/15/25 20:40 BMI result Body Mass Index 24.8 Appearance: Alert. Oriented X3. No acute distress. Eyes: Pupils equal, round and reactive to light. ENT: Pharynx normal. Neck: Normal inspection. Neck supple. CVS: Pulses normal. Respiratory: No respiratory distress. Abdomen: atraumatic Skin: Skin warm and dry. Normal skin color. Extremities: No lower extremity edema. She has no rash or no joint effusion she is distal neurovascularly intact in the left leg she has tenderness to palpation over the prepatellar area and some bogginess but no erythema or warmth she is able to dorsiflex and plantar flex the foot the patellar tendon and the quad tendon appear intact Neuro: Oriented X 3. No motor deficit. No sensory deficit. Medical Decision Making Medical Decision Making MDM Narrative: 39-year-old female with no significant past medical history here with complaint of left knee pain and prepatellar area without overt signs of septic joint or effusion. She is distal neurovascularly intact she is overall nontoxic appearing at this time I am going to obtain x-ray start her on Toradol as well as Flexeril. Charles wrap for comfort. Suspect tendonitis versus bursitis Differential Diagnosis Differential Diagnoses: The differential diagnosis associated with the presentation includes Tendinitis, bursitis Admission/Observation Consideration of admission/observation: Escalation of care including admission/observation considered No concerning workup or findings she can be managed at home Independent Interpretation I performed an independent interpretation of an: Plain X-Ray (No fracture) Radiology Impression Discussion of test interpretation with radiology: I have reviewed the radiologist's reading. External Record Review External record reviewed: Outpatient record Prescription Management I considered prescription management with: Pain Medication and Other Discharge Plan Discharge Clinical Impression: Bursitis, prepatellar, left Patient Disposition: Home, Self-Care Instructions: Knee Bursitis (ED) Additional Instructions: There is no acute findings noted on x-ray At this time I suspect that you have inflammatory reaction of the bursa or tendon Return for any redness or worsening swelling Do not take any additional xban-vaw-zpwwecl medications such as ibuprofen, Naprosyn, Aleve, Advil, Motrin Tylenol is okay Ice the area and limit weight-bearing use Charles wrap for comfort Prescriptions: New cyclobenzaprine 10 mg tablet 10 mg PO TID PRN (Reason: muscle spasm) Qty: 20 0RF ketorolac 10 mg tablet 10 mg PO TID PRN (Reason: pain) 5 Days Qty: 15 0RF Rx Instructions: given IV toradol in department No Action diclofenac sodium [Voltaren Arthritis Pain] 1 % gel 4 g topical QID Qty: 100 1RF Rx Instructions: apply to single knee, ankle, foot; for foot includes sole/toes/top of foot prednisone 20 mg tablet 40 mg PO DAILY Qty: 10 0RF nitrofurantoin monohyd/m-cryst [Macrobid] 100 mg capsule 100 mg PO Q12H 7 Days Qty: 14 0RF Rx Instructions: must administer with a meal/food Stand Alone Forms: Work/School Release Print Language: Armenian
[2025-06-15 22:05] VITALS: BP 115/67; PULSE 71; RESP 18; TEMP 37.1; O2SAT 98
== END 2025-06-15 22:10 | disposition home or self-care (01) ==
PROVIDERS: Emergency Provider Emergency Medicine; PCP Physician Assistant
DX: M70.42 Prepatellar bursitis, left knee (principal); Y93.9 Activity, unspecified; M25.562 Pain in left knee
CPT/HCPCS: 73564; 96372; 99283; 99284; J1885